=== PATIENT | male | born 1960 | race Caucasian/White ===

== ENCOUNTER 2023-10-22 22:43 | Inpatient (IN) | payer BC, OTHER ==
[2023-10-22 23:34] LABS: Basophils % (A) 0 %; Eosinophils # (A) 0.1 k/uL (0-0.7); Eosinophils % (A) 2 %; HCT 40.6 % (39.0-53.0); HGB 14.3 gm/dL (13.0-17.5); Lymphocytes # (A) 1.8 k/uL (1.0-4.8); Lymphocytes % (A) 20 %; MCH 32.7 pg (25.0-35.0); MCHC 35.1 g/dL (31.0-37.0); MCV 93.2 fL (80.0-100.0); Mean Platelet Volume 7.4; Monocytes # (A) 0.5 k/uL (0-1.0); Monocytes % (A) 6 %; Neutrophils # (A) 6.5 k/uL (1.3-7.7); Neutrophils % (A) 71 %; Platelet Count 191 k/uL (150-450); RBC 4.36 m/uL (4.30-5.90); RDW 12.1 % (11.5-15.5); WBC 9.2 k/uL (3.8-10.6)
[2023-10-22 23:53] LABS: INR 1.1 (<1.2); Partial Thromboplastin Time 36.5 sec (22.0-30.0); Prothrombin Time 11.8 sec (10.0-12.5)
[2023-10-23] LABS: ALT 26 U/L (4-49); AST 23 U/L (17-59); African American GFR (CKD) >90 (>60 ml/min/1.73 sqM); Albumin 3.5 g/dL (3.5-5.0); Alkaline Phosphatase 55 U/L (38-126); Anion Gap 6 mmol/L; Blood Urea Nitrogen 17 mg/dL (9-20); Calcium 8.4 mg/dL (8.4-10.2); Carbon Dioxide 23 mmol/L (22-30); Chloride 107 mmol/L (98-107); Glucose 112 mg/dL (74-99); Non-African American GFR(CKD) >90 (>60 ml/min/1.73 sqM); Sodium 136 mmol/L (137-145); Total Bilirubin 1.1 mg/dL (0.2-1.3); Total Protein 6.2 g/dL (6.3-8.2)
[2023-10-23 00:21] LABS: Potassium 3.7 mmol/L (3.5-5.1)
[2023-10-23] MEDS ORDERED: HEPARIN SODIUM 1,000 UN/ML (10ML VL) IV PRN (00:31)
[2023-10-23] MEDS ORDERED: HEPARIN SOD,PORK IN 0.45% NACL 25,000 UNIT in 0.45% NACL 1 250ML.BAG IV SCH ×2 (00:45)
[2023-10-23] MEDS ORDERED: NALOXONE 0.4 MG/ML 1 ML VIAL IV PRN (00:57)
--- NOTE | 2023-10-23 00:57 | ED ---
Arrhythmia/Palpitations HPI - General Chief Complaint: Arrhythmia/Palpitations Stated Complaint: Dysrhythmia Time Seen by Provider: 10/22/23 22:55 Source: patient, EMS Mode of arrival: EMS Limitations: no limitations - History of Present Illness Initial Comments: 63-year-old male who presents the emergency department as a transfer from [facility]. Patient had a cystoscopy with urolift. He was sent to the postop area where he went significantly bradycardic. Patient was given 1 mg of epinephrine and then subsequently went into V. tach. This was sustained for approximately 5 minutes before he converted. Patient never lost consciousness. He felt like he was going to pass out but denies having any chest pain or shortness of breath. He denies any previous cardiac history. EKG performed at that time demonstrated significant ischemic changes. These changes continued to persist 20 minutes after the first EKG was performed. Laboratory studies reveal an elevated troponin level. Because of this it was recommended that the patient be transferred to facility with cardiology. Patient arrives and feels asymptomatic at this time. He does have a Asif in place with gross hematuria. He is on a heparin drip due to his ischemic changes and elevated Trop. No other alleviating, precipitating or modifying factors - Related Data Home Medications Medication Instructions Recorded Confirmed Omeprazole 20 mg PO DAILY 10/22/23 10/22/23 Tamsulosin [Flomax] 0.4 mg PO DIRECTED 10/22/23 10/22/23 amLODIPine BESYLATE/BENAZEPRIL 1 cap PO DAILY 10/22/23 10/22/23 [amLODIPine BESYLATE/BENAZEPRIL 10-20 mg] Previous Rx's Medication Instructions Recorded Aspirin 81 mg PO DAILY 90 Days #90 tab 10/24/23 Atorvastatin [Lipitor] 40 mg PO HS 90 Days #90 tab 10/24/23 Metoprolol Tartrate [Lopressor] 25 mg PO BID 90 Days #180 tab 10/24/23 Allergies Allergy/AdvReac Type Severity Reaction Status Date / Time tobacco Allergy Unknown Uncoded 10/22/23 23:04 walnut tree pollen Allergy Unknown Uncoded 10/22/23 23:04 Review of Systems ROS Statement: Those systems with pertinent positive or pertinent negative responses have been documented in the HPI. ROS Other: All systems not noted in ROS Statement are negative. Past Medical History Past Medical History: Diabetes Mellitus, GERD/Reflux, Hyperlipidemia, Hypertension Additional Past Medical History / Comment(s): hiatal hernia, sleep apnea History of Any Multi-Drug Resistant Organisms: None Reported Past Surgical History: Orthopedic Surgery Additional Past Surgical History / Comment(s): vasectomy Past Psychological History: No Psychological Hx Reported Smoking Status: Never smoker Past Alcohol Use History: Occasional Past Drug Use History: None Reported General Exam Limitations: no limitations General appearance: alert, in no apparent distress Head exam: Present: atraumatic, normocephalic, normal inspection Eye exam: Present: normal appearance, PERRL, EOMI. Absent: scleral icterus, conjunctival injection, periorbital swelling ENT exam: Present: normal exam, mucous membranes moist Neck exam: Present: normal inspection. Absent: tenderness, meningismus, lymphadenopathy Respiratory exam: Present: normal lung sounds bilaterally. Absent: respiratory distress, wheezes, rales, rhonchi, stridor Cardiovascular Exam: Present: regular rate, normal rhythm, normal heart sounds. Absent: systolic murmur, diastolic murmur, rubs, gallop, clicks GI/Abdominal exam: Present: soft, normal bowel sounds. Absent: distended, tenderness, guarding, rebound, rigid Extremities exam: Present: normal inspection, full ROM, normal capillary refill. Absent: tenderness, pedal edema, joint swelling, calf tenderness Back exam: Present: normal inspection Neurological exam: Present: alert, oriented X3, CN II-XII intact Psychiatric exam: Present: normal affect, normal mood Skin exam: Present: warm, dry, intact, normal color. Absent: rash Course Vital Signs 10/22/23 10/22/23 10/23/23 22:51 23:00 00:00 Temperature 99.1 F Pulse Rate 72 78 71 Pulse Rate [ Seam Hammerer ] Pulse Rate [ Sitting Seam Hammerer] Respiratory 18 16 18 Rate Blood Pressure 137/87 137/87 127/90 Blood Pressure [Left Arm] O2 Sat by Pulse 98 98 95 Oximetry 10/23/23 10/23/23 10/23/23 01:00 02:00 03:00 Temperature Pulse Rate 87 97 75 Pulse Rate [ Seam Hammerer ] Pulse Rate [ Sitting Seam Hammerer] Respiratory 17 16 12 Rate Blood Pressure 137/75 125/65 121/73 Blood Pressure [Left Arm] O2 Sat by Pulse 95 93 L 95 Oximetry 10/23/23 10/23/23 10/23/23 04:00 05:00 06:00 Temperature Pulse Rate 70 82 68 Pulse Rate [ Seam Hammerer ] Pulse Rate [ Sitting Seam Hammerer] Respiratory 18 17 15 Rate Blood Pressure 126/76 126/76 127/72 Blood Pressure [Left Arm] O2 Sat by Pulse 94 L 94 L 94 L Oximetry 10/23/23 10/23/23 10/23/23 07:00 08:30 10:48 Temperature 98.2 F Pulse Rate 84 Pulse Rate [ 72 Seam Hammerer ] Pulse Rate [ 62 Sitting Seam Hammerer] Respiratory 19 16 16 Rate Blood Pressure 124/72 Blood Pressure 127/81 101/62 [Left Arm] O2 Sat by Pulse 94 L 95 98 Oximetry Medical Decision Making - Medical Decision Making Was pt. sent in by a medical professional or institution (, PA, DRIVE IN WAITER/WAITRESS, urgent care, hospital, or long term...) When possible be specific @ -[facility] Did you speak to anyone other than the patient for history (EMS, parent, family, police, friend...)? What history was obtained from this source @ -Transferring doctor, Dr. Rios Did you review nursing and triage notes (agree or disagree)? Why? @ -I reviewed and agree with nursing and triage notes Were old charts reviewed (outside hosp., previous admission, EMS record, old EKG, old radiological studies, urgent care reports/EKG's, long term records)? Report findings @ -I reviewed patient's chart from [facility] earlier today Differential Diagnosis (chest pain, altered mental status, abdominal pain women, abdominal pain men, vaginal bleeding, weakness, fever, dyspnea, syncope, headache, dizziness, GI bleed, back pain, seizure, CVA, palpatations, mental health, musculoskeletal)? @ -Differential Palpitations Ventricular arrhythmias, atrial arrhythmias, myocardial infarction, anemia, thyrotoxicosis, electrolyte imbalance, hypokalemia, pulmonary embolism, pulmonary disease, drugs, alcohol, anxiety, stress.... This is not meant to be an all-inclusive list. EKG interpreted by me (3pts min.). @ -Yes and demonstrates sinus rhythm with rate of 61. VA interval 132. QRS 106. QTc of 392. No acute ST segment elevations or depressions X-rays interpreted by me (1pt min.). @ -None done CT interpreted by me (1pt min.). @ -None done U/S interpreted by me (1pt. min.). @ -None done What testing was considered but not performed or refused? (CT, X-rays, U/S, labs)? Why? @ -None What meds were considered but not given or refused? Why? @ -None Did you discuss the management of the patient with other professionals (professionals i.e. Dr., PA, DRIVE IN WAITER/WAITRESS, lab, RT, psych nurse, social services designee, learning support assistant, teacher, mobile patrol officer, manager of case)? Give summary @ -Spoke with admitting physician Was smoking cessation discussed for >3mins.? @ -No Was critical care preformed (if so, how long)? @ -Yes, 35 minutes for heparinization of the patient Were there social determinants of health that impacted care today? How? (Homelessness, low income, unemployed, alcoholism, drug addiction, transportation, low edu. Level, literacy, decrease access to med. care, mcc, rehab)? @ -No Was there de-escalation of care discussed even if they declined (Discuss DNR or withdrawal of care, Hospice)? DNR status @ -No What co-morbidities impacted this encounter? (DM, HTN, Smoking, COPD, CAD, Cancer, CVA, ARF, Chemo, Hep., AIDS, mental health diagnosis, sleep apnea, morbid obesity)? @ -None Was patient admitted / discharged? Hospital course, mention meds given and route, prescriptions, significant lab abnormalities, going to OR and other pertinent info. @ -Admitted. Upon arrival patient was placed into bed 6. Thorough history and physical exam was performed. I did review the patient's packet. I did check another troponin level. Patient remains on the heparin drip. Spoke with admitting physician. Cardiology will be placed on consult Undiagnosed new problem with uncertain prognosis? @ -Yes Drug Therapy requiring intensive monitoring for toxicity (Heparin, Nitro, Insulin, Cardizem)? @ -Heparin Were any procedures done? @ -No Diagnosis/symptom? @ -Acute postop bradycardia, nonsustained V. tach, NSTEMI Acute, or Chronic, or Acute on Chronic? @ -Acute Uncomplicated (without systemic symptoms) or Complicated (systemic symptoms)? @ -Complicated Side effects of treatment? @ -No Exacerbation, Progression, or Severe Exacerbation? @ -No Poses a threat to life or bodily function? How? (Chest pain, USA, DE, pneumonia, PE, COPD, DKA, ARF, appy, cholecystitis, CVA, Diverticulitis, Homicidal, Suicidal, threat to staff... and all critical care pts) @ -Yes, patient was in V. tach - Lab Data Result diagrams: 10/24/23 07:50 10/24/23 07:50 Lab Results 10/22/23 10/22/23 10/22/23 Range/Units 23:10 23:29 23:29 WBC 9.2 (3.8-10.6) k/uL RBC 4.36 (4.30-5.90) m/uL Hgb 14.3 (13.0-17.5) gm/dL Hct 40.6 (39.0-53.0) % MCV 93.2 (80.0-100.0) fL MCH 32.7 (25.0-35.0) pg MCHC 35.1 (31.0-37.0) g/dL RDW 12.1 (11.5-15.5) % Plt Count 191 (150-450) k/uL MPV 7.4 Neutrophils % 71 % Lymphocytes % 20 % Monocytes % 6 % Eosinophils % 2 % Basophils % 0 % Neutrophils # 6.5 (1.3-7.7) k/uL Lymphocytes # 1.8 (1.0-4.8) k/uL Monocytes # 0.5 (0-1.0) k/uL Eosinophils # 0.1 (0-0.7) k/uL Basophils # 0.0 (0-0.2) k/uL PT 11.8 (10.0-12.5) sec INR 1.1 (<1.2) APTT 36.5 H (22.0-30.0) sec Sodium 136 L (137-145) mmol/L Potassium 3.7 (3.5-5.1) mmol/L Chloride 107 (98-107) mmol/L Carbon Dioxide 23 (22-30) mmol/L Anion Gap 6 mmol/L BUN 17 (9-20) mg/dL Creatinine 0.69 (0.66-1.25) mg/dL Est GFR (CKD-EPI)AfAm >90 (>60 ml/min/1.73 sqM) Est GFR (CKD-EPI)NonAf >90 (>60 ml/min/1.73 sqM) Glucose 112 H (74-99) mg/dL Calcium 8.4 (8.4-10.2) mg/dL Total Bilirubin 1.1 (0.2-1.3) mg/dL AST 23 (17-59) U/L ALT 26 (4-49) U/L Alkaline Phosphatase 55 (38-126) U/L Troponin I (0.000-0.034) ng/mL Total Protein 6.2 L (6.3-8.2) g/dL Albumin 3.5 (3.5-5.0) g/dL 10/22/23 Range/Units 23:29 WBC (3.8-10.6) k/uL RBC (4.30-5.90) m/uL Hgb (13.0-17.5) gm/dL Hct (39.0-53.0) % MCV (80.0-100.0) fL MCH (25.0-35.0) pg MCHC (31.0-37.0) g/dL RDW (11.5-15.5) % Plt Count (150-450) k/uL MPV Neutrophils % % Lymphocytes % % Monocytes % % Eosinophils % % Basophils % % Neutrophils # (1.3-7.7) k/uL Lymphocytes # (1.0-4.8) k/uL Monocytes # (0-1.0) k/uL Eosinophils # (0-0.7) k/uL Basophils # (0-0.2) k/uL PT (10.0-12.5) sec INR (<1.2) APTT (22.0-30.0) sec Sodium (137-145) mmol/L Potassium (3.5-5.1) mmol/L Chloride (98-107) mmol/L Carbon Dioxide (22-30) mmol/L Anion Gap mmol/L BUN (9-20) mg/dL Creatinine (0.66-1.25) mg/dL Est GFR (CKD-EPI)AfAm (>60 ml/min/1.73 sqM) Est GFR (CKD-EPI)NonAf (>60 ml/min/1.73 sqM) Glucose (74-99) mg/dL Calcium (8.4-10.2) mg/dL Total Bilirubin (0.2-1.3) mg/dL AST (17-59) U/L ALT (4-49) U/L Alkaline Phosphatase (38-126) U/L Troponin I 0.195 H* (0.000-0.034) ng/mL Total Protein (6.3-8.2) g/dL Albumin (3.5-5.0) g/dL Disposition Clinical Impression: V-tach, NSTEMI (non-ST elevated myocardial infarction) Disposition: ADMITTED IP TO THIS HOSP Condition: Stable Is patient prescribed a controlled substance at d/c from ED?: No Time of Disposition: 00:57 Decision to Admit Reason: Admit from EC Decision Date: 10/23/23 Decision Time: 00:57
[2023-10-23] MEDS ORDERED: DEXTROSE 50% SYRINGE 50 ML IVP PRN ×2 (04:11)
--- NOTE | 2023-10-23 04:19 | P.HPIM ---
History of Present Illness H&P Date: 10/23/23 Chief Complaint: V. tach 63-year-old male with diabetes mellitus, hypertension Patient had a procedure done today at a different facility for BPH and bladder issues, however post cystoscopy while in the recovery room he was noted to be bradycardic patient describes that he was feeling going into a tunnel and blacking out. He does not recall any associated shortness of breath or chest pain but remembers that a lot of people got into the room and then he was transferred to the ER. Transfer papers and signout indicated that the patient went into significant bradycardia down to the 30s for which she was given a dose of epinephrine after which immediately he went into V. tach CODE BLUE was activated however CPR was not administered patient never lost pulse then it seems that he converted spontaneously. Upon further checkup EKG showed possible ST depression in late ral leads with elevated troponins for which she was transferred to our facility for further cardiac workup Patient currently is asymptomatic he denies any chest pain trouble breathing nausea vomiting or palpitations he denies any cardiac history Patient denies tobacco smoking illicit drugs or heavy alcohol review of systems Pertinent positives as noted in HPI. All other systems were reviewed and are negative on exam Constitutional: No acute distress, conversant, pleasant Eyes: Anicteric sclerae, moist conjunctiva, Pupils equal round reactive to light ENMT: NC/AT Oropharynx clear, no erythema, or exudates Neck: Supple, no masses, or JVD No carotid bruits No thyromegaly Lungs: Clear to auscultation Clear to percussion Normal respiratory effort, no accessory muscle use Cardiovascular: Heart regular in rate and rhythm, No murmurs, gallops, or rubs No peripheral edema Abdominal: Soft Nontender, no guarding, rebound or rigidity Abdomen moving with respiration Normoactive bowel sounds No hepatomegaly, No splenomegaly No palpable mass No abdominal wall hernia noted Asif catheter in place with hematuria post cystoscopy procedure Extremities: No digital cyanosis No clubbing Pedal pulses intact and symmetrical Radial pulses intact and symmetrical No calf tenderness Psychiatric: Alert and oriented to person, place and time Appropriate affect fair judgement Neuro Muscles Strength 5/5 in all 4 extremities Sensation to light touch grossly present throughout Cranial nerves II-XII grossly intact Lymphatics: no palpable cervical or supraclavicular lymph nodes Past Medical History Past Medical History: Diabetes Mellitus, GERD/Reflux, Hyperlipidemia, Hypertension Additional Past Medical History / Comment(s): hiatal hernia, sleep apnea History of Any Multi-Drug Resistant Organisms: None Reported Past Surgical History: Orthopedic Surgery Additional Past Surgical History / Comment(s): vasectomy Past Psychological History: No Psychological Hx Reported Smoking Status: Never smoker Past Alcohol Use History: Occasional Past Drug Use History: None Reported Medications and Allergies Home Medications Medication Instructions Recorded Confirmed Type Atorvastatin [Lipitor] 10 mg PO HS 10/22/23 10/22/23 History Omeprazole 20 mg PO DAILY 10/22/23 10/22/23 History Tamsulosin [Flomax] 0.4 mg PO DIRECTED 10/22/23 10/22/23 History amLODIPine BESYLATE/BENAZEPRIL 1 cap PO DAILY 10/22/23 10/22/23 History [amLODIPine BESYLATE/BENAZEPRIL 10-20 mg] Allergies Allergy/AdvReac Type Severity Reaction Status Date / Time tobacco Allergy Unknown Uncoded 10/22/23 23:04 walnut tree pollen Allergy Unknown Uncoded 10/22/23 23:04 Physical Exam Vitals: Vital Signs Temp Pulse Resp BP Pulse Ox 10/23/23 01:00 87 17 137/75 95 10/23/23 00:00 71 18 127/90 95 10/22/23 23:00 78 16 137/87 98 10/22/23 22:51 99.1 F 72 18 137/87 98 Intake and Output 10/22/23 10/22/23 10/23/23 14:59 22:59 06:59 Other: Weight 101.151 kg Results CBC & Chem 7: 10/22/23 23:10 10/22/23 23:29 Labs: Abnormal Lab Results - Last 24 Hours (Table) 10/22/23 10/22/23 10/22/23 Range/Units 23:29 23:29 23:29 APTT 36.5 H (22.0-30.0) sec Sodium 136 L (137-145) mmol/L Glucose 112 H (74-99) mg/dL Troponin I 0.195 H* (0.000-0.034) ng/mL Total Protein 6.2 L (6.3-8.2) g/dL Assessment and Plan Assessment: 63-year-old male with diabetes mellitus hypertension BPH had a cystoscopy procedure done at a different facility after which was complicated by bradycardia then V. tach arrhythmia he never lost pulse I discussed case with ED doctor and accepted the admission for ventricular arrhythmia rule out underlying acute coronary syndrome post cystoscopy procedure with anticipated length of stay more than 2 midnights Ventricular arrhythmia with V. tach Elevated troponins rule out acute coronary syndrome Patient was initiated on heparin drip upon transfer from the other facility Monitor vital signs Cardiology consult Documented V. tach was noted immediately post epinephrine which was given for bradycardia while in recovery room Currently patient is in normal sinus rhythm Repeat EKG in our facility shows normal sinus rhythm unremarkable no acute ST changes Troponin elevated 0.19 trending down to 0.14 Hypertension Controlled Continue amlodipine and lisinopril Diabetes mellitus Dietary controlled at home Insulin sliding scale BPH status post cystoscopy Asif catheter in place Urology consult Significant hematuria Monitor hemoglobin currently 14.3 unremarkable Renal function unremarkable sodium 136 potassium 3.7 BUN 17 creatinine 0.69 Chest x-ray done at the other facility no acute cardiopulmonary process Full code DVT prophylaxis currently on heparin drip for possible ACS
[2023-10-23] MEDS ORDERED: ACETAMINOPHEN TAB 325 MG TAB PO STA (07:14)
[2023-10-23 07:40] LABS: HCT 40.5 % (39.0-53.0); HGB 13.8 gm/dL (13.0-17.5); MCH 32.4 pg (25.0-35.0); MCHC 34.1 g/dL (31.0-37.0); Mean Platelet Volume 7.1; Platelet Count 196 k/uL (150-450); RBC 4.26 m/uL (4.30-5.90); RDW 12.2 % (11.5-15.5)
[2023-10-23 08:01] LABS: ALT 25 U/L (4-49); AST 21 U/L (17-59); African American GFR (CKD) >90 (>60 ml/min/1.73 sqM); Albumin 3.6 g/dL (3.5-5.0); Alkaline Phosphatase 62 U/L (38-126); Anion Gap 9 mmol/L; Blood Urea Nitrogen 16 mg/dL (9-20); Calcium 8.5 mg/dL (8.4-10.2); Carbon Dioxide 24 mmol/L (22-30); Chloride 105 mmol/L (98-107); Glucose 148 mg/dL (74-99); Non-African American GFR(CKD) >90 (>60 ml/min/1.73 sqM); Sodium 138 mmol/L (137-145); Total Bilirubin 0.9 mg/dL (0.2-1.3); Total Protein 6.2 g/dL (6.3-8.2)
[2023-10-23] MEDS: INSULIN ASPART (NovoLOG) 100 UNIT/ML VIAL SQ SCH ×4 (08:15→20:42)
[2023-10-23] MEDS: ASPIRIN 81 MG PO SCH (08:32)
[2023-10-23] MEDS: lisinopriL 20 MG TAB PO SCH (08:32)
[2023-10-23] MEDS: PANTOPRAZOLE 40 MG TABLET PO SCH (08:32)
[2023-10-23] MEDS: amLODIPine 10 MG TAB PO SCH (08:32)
[2023-10-23] MEDS ORDERED: TAMSULOSIN 0.4 MG CAP.ER.24H PO SCH (09:00)
[2023-10-23] MEDS ORDERED: ALPRAZolam 0.5 MG TAB PO PRN (09:07)
[2023-10-23] MEDS ORDERED: ATORVASTATIN 80 MG TAB PO STA (09:07)
[2023-10-23] MEDS ORDERED: ALPRAZolam 0.25 MG TAB PO PRN (09:07)
[2023-10-23] MEDS ORDERED: ASPIRIN 325 MG TAB PO STA (09:07)
[2023-10-23] MEDS ORDERED: NITROGLYCERIN SL TABS 0.4 MG TAB SUBLINGUAL PRN (09:07)
[2023-10-23] MEDS: SODIUM CHLORIDE 0.9% 1,000 ML in EMPTY BAG 1 BAG IV SCH ×2 (09:17→14:50)
--- NOTE | 2023-10-23 09:43 | XR ---
EXAMINATION TYPE: XR chest 1V portable DATE OF EXAM: 10/23/2023 Comparison: None Clinical History: 63-year-old male with chest pain and low heart rate Findings: Heart normal size. Aorta and pulmonary vasculature within normal limits. Some strandy atelectasis in the lower lungs. More focal patchy opacity medial right base area Impression: Strandy bibasilar atelectasis. Either a more focal area of atelectasis versus developing infiltrate a t the medial right base. Correlate with symptoms.
--- NOTE | 2023-10-23 09:50 | P.CRDCN ---
History of Present Illness History of present illness: HISTORY OF PRESENT ILLNESS: This is a 63-year-old male with a past medical history significant for hypertension, hyperlipidemia, BPH, and diet-controlled diabetes. 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 He has not seen the director for beauty school in over a year. We have been asked to see the patient in consultation for ventricular tachycardia and elevated troponin. Patient examined at the bedside in the emergency room. Patient was at [facility] yesterday. He underwent a cystoscopy. Post procedure the patient was found to be bradycardic. The patient was apparently given epinephrine. After administration, the patient began to have runs of ventricular tachycardia. According to documentation, the patient did not lose consciousness and did not require CPR. Apparently, he converted back to SR on his own. The patient currently denies any chest pain or pressure. He denies any shortness of breath. The patient does report at home he gets dizzy and lightheaded if he gets out of bed or from a sitting position too quickly. DIAGNOSTICS: - EKG reveals sinus mechanism with ST depression in V3V6 - Chest xray streaky bibasilar atelectasis. Either a more focal area of atelectasis versus developing infiltrate at the medial right base. - Laboratory data: WBC 8.0. Hemoglobin 13.8. Platelet count 196. Sodium 138. Potassium 4.0. BUN 16. Creatinine 0.76. Troponin 0.195. 0.142. 0.095. - Current home cardiac medications include Lipitor 10 mg at night and amlodipine-benazepril 10 mg - 20 mg daily - No previous echocardiogram or cardiac catheterization available in EMR for review REVIEW OF SYSTEMS: At the time of my exam: CONSTITUTIONAL: Denies fever or chills. HEENT: Denies blurred vision, vision changes, or eye pain. Denies hemoptysis CARDIOVASCULAR: Denies chest pain. Denies orthopnea. Denies PND. Denies palpitations RESPIRATORY: Denies shortness of breath. GASTROINTESTINAL: Denies abdominal pain. Denies nausea or vomiting. HEMATOLOGIC: Denies bleeding disorders. GENITOURINARY: Denies any blood in urine. SKIN: Denies pruitis. Denies rash. PHYSICAL EXAM: VITAL SIGNS: Reviewed. GENERAL: Well-developed in no acute distress. HEENT: Head is normocephalic. Pupils are equal, round. Sclerae anicteric. Mucous membranes of the mouth are moist. Neck supple. No JVD or thyromegaly LUNGS: Respirations even and unlabored. Lungs essentially clear to auscultation bilaterally. HEART: Regular rate and rhythm. S1 and S2 heard. Soft systolic murmur noted ABDOMEN: Soft. Nondistended. Nontender. EXTREMITIES: Normal range of motion. No clubbing or cyanosis. Peripheral pulses intact. No lower extremity edema NEUROLOGIC: Awake and alert. Oriented x 3. ASSESSMENT: Bradycardia, status post cystoscopy Reported ventricular tachycardia, status post epinephrine administration for bradycardia, converting to sinus mechanism spontaneously without need for CPR or defibrillation, no rhythm strips available for review Non-STEMI History of hypertension History of hyperlipidemia History of diet-controlled diabetes BPH PLAN: Obtain 2D echo to assess cardiac structure and function Continue IV heparin Add aspirin 81 mg daily Increase atorvastatin to 40 mg at night Resume home cardiac medications Patient to undergo cardiac catheterization today with Dr. Champagne Further recommendations pending patient course Nurse practitioner note has been reviewed by physician. Signing provider agrees with the documented findings, assessment, and plan of care documented by TILE EDGER as a scribe. Past Medical History Past Medical History: Diabetes Mellitus, GERD/Reflux, Hyperlipidemia, Hypertension Additional Past Medical History / Comment(s): hiatal hernia, sleep apnea History of Any Multi-Drug Resistant Organisms: None Reported Past Surgical History: Orthopedic Surgery Additional Past Surgical History / Comment(s): vasectomy Past Psychological History: No Psychological Hx Reported Smoking Status: Never smoker Past Alcohol Use History: Occasional Past Drug Use History: None Reported Medications and Allergies Home Medications Medication Instructions Recorded Confirmed Type Atorvastatin [Lipitor] 10 mg PO HS 10/22/23 10/22/23 History Omeprazole 20 mg PO DAILY 10/22/23 10/22/23 History Tamsulosin [Flomax] 0.4 mg PO DIRECTED 10/22/23 10/22/23 History amLODIPine BESYLATE/BENAZEPRIL 1 cap PO DAILY 10/22/23 10/22/23 History [amLODIPine BESYLATE/BENAZEPRIL 10-20 mg] Allergies Allergy/AdvReac Type Severity Reaction Status Date / Time tobacco Allergy Unknown Uncoded 10/22/23 23:04 walnut tree pollen Allergy Unknown Uncoded 10/22/23 23:04 Physical Exam Vitals: Vital Signs Temp Pulse Resp BP Pulse Ox 10/23/23 07:00 84 19 124/72 94 L 10/23/23 06:00 68 15 127/72 94 L 10/23/23 05:00 82 17 126/76 94 L 10/23/23 04:00 70 18 126/76 94 L 10/23/23 03:00 75 12 121/73 95 10/23/23 02:00 97 16 125/65 93 L 10/23/23 01:00 87 17 137/75 95 10/23/23 00:00 71 18 127/90 95 10/22/23 23:00 78 16 137/87 98 10/22/23 22:51 99.1 F 72 18 137/87 98 Intake and Output 10/22/23 10/23/23 10/23/23 22:59 06:59 14:59 Output Total 450 Balance -450 Output: Urine 450 Other: Weight 101.151 kg Results 10/23/23 06:56 10/23/23 06:56 Cardiac Enzymes 10/22/23 10/22/23 10/23/23 Range/Units 23:29 23:29 03:00 AST 23 (17-59) U/L Troponin I 0.195 H* 0.142 H* (0.000-0.034) ng/mL Coagulation 10/22/23 10/23/23 Range/Units 23:29 06:56 PT 11.8 (10.0-12.5) sec APTT 36.5 H 34.1 H (22.0-30.0) sec CBC 10/22/23 10/23/23 Range/Units 23:10 06:56 WBC 9.2 8.0 (3.8-10.6) k/uL RBC 4.36 4.26 L (4.30-5.90) m/uL Hgb 14.3 13.8 (13.0-17.5) gm/dL Hct 40.6 40.5 (39.0-53.0) % Plt Count 191 196 (150-450) k/uL Comprehensive Metabolic Panel 10/22/23 Range/Units 23:29 Sodium 136 L (137-145) mmol/L Potassium 3.7 (3.5-5.1) mmol/L Chloride 107 (98-107) mmol/L Carbon Dioxide 23 (22-30) mmol/L BUN 17 (9-20) mg/dL Creatinine 0.69 (0.66-1.25) mg/dL Glucose 112 H (74-99) mg/dL Calcium 8.4 (8.4-10.2) mg/dL AST 23 (17-59) U/L ALT 26 (4-49) U/L Alkaline Phosphatase 55 (38-126) U/L Total Protein 6.2 L (6.3-8.2) g/dL Albumin 3.5 (3.5-5.0) g/dL Current Medications Generic Name Dose Route Start Last Admin Trade Name Freq PRN Reason Stop Dose Admin Amlodipine Besylate 10 mg 10/23/23 09:00 Amlodipine 10 Mg Tab PO DAILY [facility] Atorvastatin Calcium 10 mg 10/23/23 21:00 Atorvastatin 10 Mg Tab PO HS [facility] Dextrose/Water 25 ml 10/23/23 04:11 Dextrose 50% Syringe 50 Ml IVP PER PROTOCOL PRN Hypoglycemia Protocol Dextrose/Water 50 ml 10/23/23 04:11 Dextrose 50% Syringe 50 Ml IVP PER PROTOCOL PRN Hypoglycemia Protocol Heparin Sodium (Porcine) 0 unit 10/23/23 00:31 Heparin Sodium 1,000 Un/Ml (10ml Vl) IV PER PROTOCOL PRN Low PTT Protocol Heparin Sodium/Sodium Chloride 250 mls @ 10 mls/hr 10/23/23 00:45 10/23/23 00:50 25,000 unit/ Sodium Chloride IV 9.89 units/kg/hr .Q24H [facility] 10 mls/hr Administration Protocol 9.8862 UNITS/KG/HR Insulin Aspart 0 unit 10/23/23 07:30 Insulin Aspart (Novolog) 100 Unit/Ml Vial SQ ACHS [facility] Protocol Lisinopril 20 mg 10/23/23 09:00 Lisinopril 20 Mg Tab PO DAILY [facility] Naloxone HCl 0.2 mg 10/23/23 00:57 Naloxone 0.4 Mg/Ml 1 Ml Vial IV Q2M PRN Opioid Reversal Pantoprazole Sodium 40 mg 10/23/23 07:30 Pantoprazole 40 Mg Tablet PO AC-BRKFST [facility] Intake and Output 10/22/23 10/23/23 10/23/23 22:59 06:59 14:59 Output Total 450 Balance -450 Output: Urine 450 Other: Weight 101.151 kg 10/23/23 06:56 10/22/23 23:29
[2023-10-23] MEDS ORDERED: VERAPAMIL 2.5 MG/ML 2 ML AMP ONE (10:00)
[2023-10-23] MEDS ORDERED: LIDOCAINE 1% INJ 10MG/ML (20 ML MDV) ONE (10:00)
[2023-10-23] MEDS ORDERED: HEPARIN SODIUM 1,000 UN/ML (10ML VL) ONE (10:00)
[2023-10-23] MEDS ORDERED: fentaNYL (PF) 50 MCG/ML 2 ML AMP ONE (10:01)
[2023-10-23] MEDS ORDERED: fentaNYL (PF) 50 MCG/ML 2 ML AMP IVP ONE (10:03)
[2023-10-23] MEDS ORDERED: LIDOCAINE 1% INJ 10MG/ML (20 ML MDV) SQ ONE (10:21)
[2023-10-23] MEDS ORDERED: VERAPAMIL SYRINGE (5 MG/10 ML) INTRAARTER ONE (10:22)
[2023-10-23] MEDS ORDERED: HEPARIN SODIUM 1,000 UN/ML (10ML VL) IVP ONE (10:24)
[2023-10-23] MEDS ORDERED: IOPAMIDOL-370 100ML BTL IVP ONE (10:32)
[2023-10-23] MEDS ORDERED: RX INFO: IV CONTRAST WAS GIVEN 1 EACH MISC MISCELLANE PRN (10:48)
--- NOTE | 2023-10-23 10:54 | P.CARDCATH ---
Date of Procedure: 10/23/23 Description of Procedure: Cardiac Catheterization: The patient is a 63-year-old male with a history of hypertension, hyperlipidemia who underwent cystoscopy in a different facility, postprocedure had episodes of bradycardia and hypotension, received epinephrine and subsequently had an episode of nonsustained VT in addition to ST segment depression in the lateral leads. He was transferred for further evaluation and he had mild troponin elevation. Recommendations were made regarding cardiac catheterization, the risks and the complications were discussed with the patient who is in full understanding and agreement. Procedure Description: Patient was brought to powerhouse laborer in fasting semi-sedated state after receiving Fentanyl and Benadryl achieiving moderate conscious sedated state. Using Xylocaine Anesthesia and modified Seldinger technique, a 6-Azeri sheath was introduced in the right radial artery . Subsequently, selective coronary angiography was performed using a 5-Azeri 3.5 bend Rosaura catheter. Multiple views of the coronary artery including hemiaxial views were obtained. The 6 Azeri pigtail catheter was used to cross the aortic valve and LVEDP was calculated. Following that, catheter and sheath were removed. Hemostasis was obtained with deployment of vascular band . There was no immediate complication. Patient was returned to room in stable condition. Of note, the patient received a total of 5000 units of intravenous heparin as well as intra-arterial verapamil. Findings: Left main: This is a large size vessel, bifurcating into LAD and left circumflex, left main has no obstructive disease LAD: This is a large size vessel giving rise to 2 obtuse marginal branch the LAD tapers in the distal third. The LAD and its branches have no obstructive disease Left circumflex: This is a nondominant vessel large in caliber giving rise to 2 obtuse marginal branch. The second obtuse marginal branch proximally has a 20% plaque. The rest of the vessel has no high-grade stenosis RCA: This is a large sized vessel bifurcating distally to PDA and PLV, dominant the RCA and its branches have no obstructive disease. Left Ventriculogram: Performed in the HERNADEZ view and revealed normal left ventricular and systolic function there was no evidence of significant mitral regurgitation Hemodynamics: There was no gradient across the aortic valve, LVEDP was 15-20 mmHg Conclusion: 1. Mild intimal disease in the second OM 2. No obstructive disease in the RCA and LAD 3. Normal ventricle size and systolic function 4. Right dominance Recommendations: I would recommend to continue medical therapy, it is likely that his arrhythmia was related to the epinephrine. The findings and the recommendations were discussed with the patient and the family and they were in full understanding and agreement. Duration of sedation is 14 minutes.
[2023-10-23] MEDS ORDERED: SODIUM CHLORIDE 0.9% 1,000 ML IV SCH (11:00)
[2023-10-23] MEDS ORDERED: HYDROcodone/APAP 5-325MG 1 EACH TAB PO PRN (13:46)
--- NOTE | 2023-10-23 13:51 | P.PN ---
Subjective Progress Note Date: 10/23/23 Hospital course: Patient is a pleasant 63-year-old male with a past medical history of hypertension, hyperlipidemia, obstructive sleep apnea, GERD, and diet-controlled diabetes mellitus. He presented to the emergency department via transfer from [facility] secondary to concerns of V. tach. Per report patient underwent a cystoscopy with UroLift at their facility and while in postop patient was reportedly found to have episodes of bradycardia radiating down into the 30s and was given a dose of epinephrine and immediately went into sustained V. tach in which he never lost a pulse and converted without further intervention. An EKG was completed at previous facility which reportedly showed concerns of possible ST depression in lateral leads and patient was found to have elevated troponin. He was started on low intensity heparin infusion and transferred to our facility for admission and to undergo further cardiac workup. Upon arrival to our facility patient underwent full evaluation. Vital signs as follows blood pressure 137/87, heart rate 72, respiratory rate 18, temp 99.1 F, SpO2 of 98% on room air. Labs completed and reviewed. CBC and BMP unremarkable. Liver profile normal findings. Troponin elevated at 0.195. EKG was completed showing sinus rhythm at 61 bpm with T wave inversions in leads III otherwise showing no significant ST abnormalities showing no signs of acute ischemia at this time. Patient was admitted under our services with consultation to cardiology. Troponins trended overnight resulting at 0.195, 0.142, and 0.095. Patient taken for cardiac cath this morning. Cardiac catheterization showing mild intimal disease in the second OM and no obstructive disease in the RCA or LAD with normal ventricular size and systolic function. Cardiology recommending continuing medical therapy and that it was likely that the arrhythmia was secondary to epinephrine administration. . Physical exam: Patient seen and fully evaluated in Clerical Warehouse Worker holding area status post completion of cardiac cath. He appears to be doing well and denies having any pain or complaints. Cardiac cath site right wrist with TR band in place. Patient denies having any headache, lightheadedness, dizziness, chest pain, palpitations, shortness of breath, or any other complaints at this time. Vital signs reviewed and stable. General: Nontoxic, no distress and appears stated age. Derm: Skin warm and dry, normal coloration for ethnicity. Head: Atraumatic, normocephalic and symmetric. Eyes: EOMs intact, no lid lag, and anicteric sclera Mouth: no lip lesions, mucus membranes moist Cardiovascular: regular rate and rhythm with normal S1S2, no murmur, positive posterior tibial pulses bilaterally, and cap refill < 2 seconds. Lungs: Respirations even, regular, and unlabored on room air. Lungs CTA bilaterally, no rhonchi, no rales, no wheezing, and no accessory muscle usage. Abdominal: soft, nontender to palpation, no guarding, no appreciable organomegaly Ext: ROM intact. No gross muscle atrophy, no edema, no contractures Neuro: Speech clear, face symmetrical and CN II-XII grossly intact with no noted focal neuro deficits Psych: Alert and oriented to person, place, time, and situation. Appropriate and pleasant affect. Assessment and Plan of Care: Postoperative bradycardia, status post cystoscopy Reported run of sustained ventricular tachycardia status post administration of IV epinephrine for reported treatment of bradycardia Elevated troponins, likely secondary to demand ischemia resulting from reported V. tach History of hypertension History of hyperlipidemia -Patient reportedly had postoperative bradycardia with heart rate dropping into the 30s and previous facility administered IV epinephrine for the treatment of patient's bradycardia in which patient reportedly immediately went into ventricular tachycardia. Patient never reportedly lost a pulse or needed advanced cardiac life support. Patient converted back into normal sinus rhythm without intervention. -Troponins elevated at 0.195, 0.142, and 0.095 -Cardiology evaluated, took patient for cardiac cath. -Cardiac catheterization showing mild intimal disease in the second OM and no obstructive disease in the RCA or LAD with normal ventricular size and systolic function. Cardiology recommending continuing medical therapy and that it was likely that the arrhythmia was secondary to epinephrine administration. . -Continue telemetry monitoring -Cardiac diet -Continue cardiac medication regimen with aspirin 81 mg daily, amlodipine 10 mg daily, atorvastatin 40 mg nightly, lisinopril 20 mg daily, and metoprolol 25 mg twice daily. -Echocardiogram to be completed. Status post cystoscopy Asif catheter was reportedly inserted after patient went into V. tach, patient requesting removal. We will remove at this time as it was not placed for surgical procedure or postoperative management. Orders placed for bladder scan to monitor for postvoid residuals. Symptomatic care and pain management. Patient to follow-up outpatient as scheduled with his primary urologist. Data and imaging reviewed: Chest x-ray revealing strandy bibasilar atelectasis versus developing infiltrate. Troponins trended overnight resulting at 0.195, 0.142, and 0.095. Morning labs completed and reviewed. CBC and BMP unremarkable. Liver profile normal findings. CODE STATUS: Full code DVT prophylaxis: Heparin Anticipated discharge date: Likely tomorrow morning Anticipated discharge place: Home Patient was seen independently by Nurse Pracitioner. This document was prepared using [employer] dictation software. Please allow for errors in ornamental brick installer, while rare they do occur. Nikos Johnson PHARMACEUTICAL PROCESS ENGINEER rendered care for this patient independently, reviewed the findings and plan as documented in the note above. I did not physically speak with or examine the patient on this ashwin Objective - Vital Signs Vital signs: Vital Signs Temp 98.2 F 10/23/23 08:30 Pulse 72 10/23/23 08:30 Resp 16 10/23/23 08:30 BP 127/81 10/23/23 08:30 Pulse Ox 95 10/23/23 08:30 FiO2 Intake & Output 10/22/23 10/23/23 10/23/23 18:59 06:59 18:59 Output Total 450 Balance -450 Weight 101.151 kg Output: Urine 450 - Labs CBC & Chem 7: 10/23/23 06:56 10/23/23 06:56 Labs: Abnormal Lab Results - Last 24 Hours (Table) 10/22/23 10/22/23 10/22/23 Range/Units 23:29 23:29 23:29 RBC (4.30-5.90) m/uL APTT 36.5 H (22.0-30.0) sec Sodium 136 L (137-145) mmol/L Glucose 112 H (74-99) mg/dL Troponin I 0.195 H* (0.000-0.034) ng/mL Total Protein 6.2 L (6.3-8.2) g/dL 10/23/23 10/23/23 10/23/23 Range/Units 03:00 06:56 06:56 RBC (4.30-5.90) m/uL APTT 34.1 H (22.0-30.0) sec Sodium (137-145) mmol/L Glucose (74-99) mg/dL Troponin I 0.142 H* 0.095 H* (0.000-0.034) ng/mL Total Protein (6.3-8.2) g/dL 10/23/23 10/23/23 Range/Units 06:56 06:56 RBC 4.26 L (4.30-5.90) m/uL APTT (22.0-30.0) sec Sodium (137-145) mmol/L Glucose 148 H (74-99) mg/dL Troponin I (0.000-0.034) ng/mL Total Protein 6.2 L (6.3-8.2) g/dL
[2023-10-23] MEDS ORDERED: SODIUM CHLORIDE 0.9% 1,000 ML IV ONE (14:45)
[2023-10-23 17:00] LABS: Glucose,Whole Blood 127 mg/dL (70-110)
--- NOTE | 2023-10-23 18:55 | P.GSCN ---
History of Present Illness Consult date: 10/23/23 Reason for Consult: Gross hematuria History of present illness: This is a 63-year-old male that was transferred from [facility] for car diology evaluation. Urology is consulted for gross hematuria . Patient underwent Urolift by Dr. Graves at [place]. Patient had a Asif catheter placed postprocedure which was subsequently removed this morning. Following the procedure and with catheter insertion it was noticed that urine was gross hematuria. Patient underwent UroLift secondary to obstructive urinary symptoms. He indicated since Asif catheter removal he is able to void without any difficulties. Denies any gross hematuria or dysuria. Prior to his procedure no previous history of gross hematuria. Review of Systems - Constitutional Denies fever, Denies weight loss - EENT Ears, nose, mouth and throat: Denies dysphagia - Cardiovascular Denies chest pain, Denies shortness of breath - Respiratory Denies cough, Denies 7 - Gastrointestinal Reports as per HPI - Genitourinary Denies dysuria, Denies hematuria Past Medical History Past Medical History: Diabetes Mellitus, GERD/Reflux, Hyperlipidemia, Hypertension Additional Past Medical History / Comment(s): hiatal hernia, sleep apnea History of Any Multi-Drug Resistant Organisms: None Reported Past Surgical History: Orthopedic Surgery Additional Past Surgical History / Comment(s): vasectomy Smoking Status: Never smoker Medications and Allergies Home Medications Medication Instructions Recorded Confirmed Type Atorvastatin [Lipitor] 10 mg PO HS 10/22/23 10/22/23 History Omeprazole 20 mg PO DAILY 10/22/23 10/22/23 History Tamsulosin [Flomax] 0.4 mg PO DIRECTED 10/22/23 10/22/23 History amLODIPine BESYLATE/BENAZEPRIL 1 cap PO DAILY 10/22/23 10/22/23 History [amLODIPine BESYLATE/BENAZEPRIL 10-20 mg] Allergies Allergy/AdvReac Type Severity Reaction Status Date / Time tobacco Allergy Unknown Uncoded 10/22/23 23:04 walnut tree pollen Allergy Unknown Uncoded 10/22/23 23:04 Surgical - Exam Vital Signs Temp Pulse Resp BP Pulse Ox 99.1 F 72 18 137/87 98 10/22/23 22:51 10/22/23 22:51 10/22/23 22:51 10/22/23 22:51 10/22/23 22:51 - General no distress, no pain - Eyes normal ocular movement, no pale - ENT normal nares, normal mucosa - Respiratory normal expansion, normal respiratory effort - Abdomen Abdomen: soft, non tender - Psychiatric oriented to time, oriented to person, oriented to place Results - Labs 10/23/23 06:56 10/23/23 06:56 Abnormal Lab Results - Last 24 Hours (Table) 10/22/23 10/22/23 10/22/23 Range/Units 23:29 23:29 23:29 RBC (4.30-5.90) m/uL APTT 36.5 H (22.0-30.0) sec Sodium 136 L (137-145) mmol/L Glucose 112 H (74-99) mg/dL POC Glucose (mg/dL) (70-110) mg/dL Troponin I 0.195 H* (0.000-0.034) ng/mL Total Protein 6.2 L (6.3-8.2) g/dL 10/23/23 10/23/23 10/23/23 Range/Units 03:00 06:56 06:56 RBC (4.30-5.90) m/uL APTT 34.1 H (22.0-30.0) sec Sodium (137-145) mmol/L Glucose (74-99) mg/dL POC Glucose (mg/dL) (70-110) mg/dL Troponin I 0.142 H* 0.095 H* (0.000-0.034) ng/mL Total Protein (6.3-8.2) g/dL 10/23/23 10/23/23 10/23/23 Range/Units 06:56 06:56 16:58 RBC 4.26 L (4.30-5.90) m/uL APTT (22.0-30.0) sec Sodium (137-145) mmol/L Glucose 148 H (74-99) mg/dL POC Glucose (mg/dL) 127 H (70-110) mg/dL Troponin I (0.000-0.034) ng/mL Total Protein 6.2 L (6.3-8.2) g/dL Diabetes panel 10/22/23 10/23/23 Range/Units 23:29 06:56 Sodium 136 L 138 (137-145) mmol/L Potassium 3.7 4.0 (3.5-5.1) mmol/L Chloride 107 105 (98-107) mmol/L Carbon Dioxide 23 24 (22-30) mmol/L BUN 17 16 (9-20) mg/dL Creatinine 0.69 0.76 (0.66-1.25) mg/dL Glucose 112 H 148 H (74-99) mg/dL Calcium 8.4 8.5 (8.4-10.2) mg/dL AST 23 21 (17-59) U/L ALT 26 25 (4-49) U/L Alkaline Phosphatase 55 62 (38-126) U/L Total Protein 6.2 L 6.2 L (6.3-8.2) g/dL Albumin 3.5 3.6 (3.5-5.0) g/dL Calcium panel 10/22/23 10/23/23 Range/Units 23:29 06:56 Calcium 8.4 8.5 (8.4-10.2) mg/dL Albumin 3.5 3.6 (3.5-5.0) g/dL Pituitary panel 10/22/23 10/23/23 Range/Units 23:29 06:56 Sodium 136 L 138 (137-145) mmol/L Potassium 3.7 4.0 (3.5-5.1) mmol/L Chloride 107 105 (98-107) mmol/L Carbon Dioxide 23 24 (22-30) mmol/L BUN 17 16 (9-20) mg/dL Creatinine 0.69 0.76 (0.66-1.25) mg/dL Glucose 112 H 148 H (74-99) mg/dL Calcium 8.4 8.5 (8.4-10.2) mg/dL Adrenal panel 10/22/23 10/23/23 Range/Units 23:29 06:56 Sodium 136 L 138 (137-145) mmol/L Potassium 3.7 4.0 (3.5-5.1) mmol/L Chloride 107 105 (98-107) mmol/L Carbon Dioxide 23 24 (22-30) mmol/L BUN 17 16 (9-20) mg/dL Creatinine 0.69 0.76 (0.66-1.25) mg/dL Glucose 112 H 148 H (74-99) mg/dL Calcium 8.4 8.5 (8.4-10.2) mg/dL Total Bilirubin 1.1 0.9 (0.2-1.3) mg/dL AST 23 21 (17-59) U/L ALT 26 25 (4-49) U/L Alkaline Phosphatase 55 62 (38-126) U/L Total Protein 6.2 L 6.2 L (6.3-8.2) g/dL Albumin 3.5 3.6 (3.5-5.0) g/dL Assessment and Plan Assessment: 63-year-old male with gross hematuria post UroLift. His hematuria is secondary to his recent procedure and catheter placement. Discussed with him he may continue to have intermittent hematuria for the next few weeks given his recent urological surgery. No further intervention from urology standpoint, he can follow-up with his urologist at [place]
[2023-10-23 20:16] LABS: Glucose,Whole Blood 194 mg/dL (70-110)
[2023-10-23] MEDS: METOPROLOL TARTRATE 25 MG TAB PO SCH (20:41)
[2023-10-23] MEDS ORDERED: ATORVASTATIN 40 MG TAB PO SCH (21:00)
[2023-10-23] MEDS ORDERED: ATORVASTATIN 10 MG TAB PO SCH (21:00)
[2023-10-23 23:37] VITALS: RESP 16
[2023-10-24] MEDS: SODIUM CHLORIDE 0.9% 1,000 ML in EMPTY BAG 1 BAG IV SCH ×2 (05:21→08:56)
[2023-10-24] MEDS: INSULIN ASPART (NovoLOG) 100 UNIT/ML VIAL SQ SCH (06:35)
[2023-10-24 06:36] LABS: Glucose,Whole Blood 135 mg/dL (70-110)
[2023-10-24] MEDS: PANTOPRAZOLE 40 MG TABLET PO SCH (06:38)
[2023-10-24] MEDS ORDERED: HEPARIN SODIUM,PORCINE 10,000 UNIT in SODIUM CHLORIDE 0.9% 1,000 ML IRRIGATION PRN (07:00)
[2023-10-24] MEDS ORDERED: HEPARIN SODIUM,PORCINE (1 ML) 2,500 UNIT in SODIUM CHLORIDE 0.9% 250 ML IRRIGATION PRN (07:00)
[2023-10-24 08:49] LABS: Basophils % (A) 1 %; Eosinophils # (A) 0.2 k/uL (0-0.7); Eosinophils % (A) 3 %; HCT 41.8 % (39.0-53.0); HGB 14.2 gm/dL (13.0-17.5); Lymphocytes # (A) 1.4 k/uL (1.0-4.8); Lymphocytes % (A) 24 %; MCH 32.1 pg (25.0-35.0); MCV 94.2 fL (80.0-100.0); Mean Platelet Volume 7.4; Monocytes # (A) 0.4 k/uL (0-1.0); Monocytes % (A) 7 %; Neutrophils # (A) 3.8 k/uL (1.3-7.7); Neutrophils % (A) 64 %; Platelet Count 188 k/uL (150-450); RBC 4.44 m/uL (4.30-5.90); RDW 12.1 % (11.5-15.5)
[2023-10-24 09:03] VITALS: BP 124/77; PULSE 71; TEMP 98.1
[2023-10-24 09:06] LABS: African American GFR (CKD) >90 (>60 ml/min/1.73 sqM); Anion Gap 4 mmol/L; Blood Urea Nitrogen 10 mg/dL (9-20); Calcium 8.7 mg/dL (8.4-10.2); Carbon Dioxide 29 mmol/L (22-30); Chloride 105 mmol/L (98-107); Glucose 125 mg/dL (74-99); Non-African American GFR(CKD) >90 (>60 ml/min/1.73 sqM); Potassium 3.9 mmol/L (3.5-5.1); Sodium 138 mmol/L (137-145)
[2023-10-24 09:07] LABS: Prothrombin Time 10.9 sec (10.0-12.5)
[2023-10-24] MEDS: ASPIRIN 81 MG PO SCH (09:19)
[2023-10-24] MEDS: lisinopriL 20 MG TAB PO SCH (09:19)
[2023-10-24] MEDS: amLODIPine 10 MG TAB PO SCH (09:19)
[2023-10-24] MEDS: METOPROLOL TARTRATE 25 MG TAB PO SCH (09:24)
--- NOTE | 2023-10-24 11:54 | P.PN ---
Subjective HISTORY OF PRESENT ILLNESS: This is a 63-year-old male with a past medical history significant for hypertension, hyperlipidemia, BPH, and diet-controlled diabetes. Patient states that he followed with a sample examiner out of town but he is unsure of his name. He has not seen the sample examiner in over a year. We have been asked to see the patient in consultation for ventricular tachycardia and elevated troponin. Patient examined at the bedside in the emergency room. Patient was at [facility] yesterday. He underwent a cystoscopy. Post procedure the patient was found to be bradycardic. The patient was apparently given epinephrine. After administration, the patient began to have runs of ventricular tachycardia. According to documentation, the patient did not lose consciousness and did not require CPR. Apparently, he converted back to SR on his own. The patient currently denies any chest pain or pressure. He denies any shortness of breath. The patient does report at home he gets dizzy and lightheaded if he gets out of bed or from a sitting position too quickly. DIAGNOSTICS: - EKG reveals sinus mechanism with ST depression in V3V6 - Chest xray streaky bibasilar atelectasis. Either a more focal area of atelectasis versus developing infiltrate at the medial right base. - Laboratory data: WBC 8.0. Hemoglobin 13.8. Platelet count 196. Sodium 138. Potassium 4.0. BUN 16. Creatinine 0.76. Troponin 0.195. 0.142. 0.095. - Current home cardiac medications include Lipitor 10 mg at night and amlod ipine-benazepril 10 mg - 20 mg daily - No previous echocardiogram or cardiac catheterization available in EMR for review October 24, 2023 Patient is status post cardiac catheterization with Dr. Champagne yesterday revealing mild intimal disease in the second OM, no obstructive disease in the RCA and LAD, normal ventricular size and systolic function and right dominant system. Patient denies any chest pain or pressure. Denies any shortness of breath. Vital signs are stable. PHYSICAL EXAM: VITAL SIGNS: Reviewed. GENERAL: Well-developed in no acute distress. HEENT: Head is normocephalic. Pupils are equal, round. Sclerae anicteric. Mucous membranes of the mouth are moist. Neck supple. No JVD or thyromegaly LUNGS: Respirations even and unlabored. Lungs essentially clear to auscultation bilaterally. HEART: Regular rate and rhythm. S1 and S2 heard. Soft systolic murmur noted ABDOMEN: Soft. Nondistended. Nontender. EXTREMITIES: Normal range of motion. No clubbing or cyanosis. Peripheral pulses intact. No lower extremity edema NEUROLOGIC: Awake and alert. Oriented x 3. ASSESSMENT: Bradycardia, status post cystoscopy Reported ventricular tachycardia, status post epinephrine administration for bradycardia, converting to sinus mechanism spontaneously without need for CPR or defibrillation, no rhythm strips available for review Non-STEMI History of hypertension History of hyperlipidemia History of diet-controlled diabetes BPH PLAN: Continue current cardiac medications Patient is stable for discharge home today from a cardiac standpoint He has to follow-up on an outpatient basis with Dr. Champagne Nurse practitioner note has been reviewed by physician. Signing provider agrees with the documented findings, assessment, and plan of care documented by SCHOOL [employer]ORATORY TECHNICIAN as a scribe. Objective - Vital Signs Vital signs: Vital Signs Temp 98.1 F 10/24/23 08:49 Pulse 71 10/24/23 08:49 Resp 16 10/24/23 08:49 BP 124/77 10/24/23 08:49 Pulse Ox 95 10/24/23 08:49 FiO2 Intake & Output 10/23/23 10/24/23 10/24/23 18:59 06:59 18:59 Intake Total 2000 20 618 Output Total 2450 450 Balance -450 20 168 Weight 101.151 kg 102.2 kg Intake: IV 400 20 20 Invasive Line 1 10 10 Invasive Line 2 10 10 Intake, IV Titration 1000 Amount Sodium Chloride 0.9% 1, 1000 000 ml @ 75 mls/hr IV . [id number] [facility] Rx#:[id number] Oral 600 598 Output: Urine 2450 450 Uretheral (Asif) 1000 Other: Voiding Method Toilet Toilet # Voids 2 1 # Bowel Movements 1 - Labs CBC & Chem 7: 10/24/23 07:50 10/24/23 07:50 Labs: Abnormal Lab Results - Last 24 Hours (Table) 10/23/23 10/23/23 10/24/23 Range/Units 16:58 20:15 06:35 Glucose (74-99) mg/dL POC Glucose (mg/dL) 127 H 194 H 135 H (70-110) mg/dL 10/24/23 Range/Units 07:50 Glucose 125 H (74-99) mg/dL POC Glucose (mg/dL) (70-110) mg/dL
--- NOTE | 2023-10-24 12:05 | CA ---
Transthoracic Echo Report Name: Jorgito Dickens Age: 63 Gender: M : 1960 Exam Date: 10/24/2023 07:31 Exam Location: [facility] Ht (in): 69 Wt (lb): 223 Ordering Physician: Gin Lang MD Attending/Referring Phys: Edwige Landrum Stencil Cutter Machine Julianna Izquierdo RDCS Procedure CPT: Indications: VTach Cardiac Hx: Technical Quality: Fair Contrast 1: Total Dose (mL): Contrast 2: Total Dose (mL): MEASUREMENTS (Male / Female) Normal Values 2D ECHO LV Diastolic Diameter PLAX 5.1 cm 4.2 - 5.9 / 3.9 - 5.3 cm LV Systolic Diameter PLAX 3.3 cm IVS Diastolic Thickness 1.0 cm 0.6 - 1.0 / 0.6 - 0.9 cm LVPW Diastolic Thickness 1.1 cm 0.6 - 1.0 / 0.6 - 0.9 cm LV Relative Wall Thickness 0.4 RV Internal Dim ED PLAX 3.4 cm LA Systolic Diameter LX 4.0 cm 3.0 - 4.0 / 2.7 - 3.8 cm LV Diastolic Volume MOD 4C 118.3 cm??? LV Systolic Volume MOD 4C 53.2 cm??? LV Ejection Fraction MOD 4C 55.0 % LV Cardiac Index MOD 4C 1588.9 cm???/min???m??? LV Diastolic Length 4C 8.9 cm LV Systolic Length 4C 7.1 cm LV Diastolic Volume MOD 2C 86.2 cm??? LV Systolic Volume MOD 2C 33.2 cm??? LV Ejection Fraction MOD 2C 61.5 % LV Cardiac Index MOD 2C 1293.8 cm???/min???m??? LV Diastolic Length 2C 8.9 cm LV Systolic Length 2C 6.7 cm LA Volume 67.5 cm??? 18 - 58 / 22 - 52 cm??? LA Volume Index 30.0 cm???/m??? 16 - 28 cm???/m??? M-MODE Aortic Root Diameter MM 3.4 cm MV E Point Septal Separation 0.6 cm AV Cusp Separation MM 2.4 cm DOPPLER AV Peak Velocity 164.6 cm/s AV Peak Gradient 10.8 mmHg MV Area PHT 2.5 cm??? Mitral E Point Velocity 86.1 cm/s Mitral A Point Velocity 70.3 cm/s Mitral E to A Ratio 1.2 MV Deceleration Time 304.8 ms MV E' Velocity 9.4 cm/s Mitral E to MV E' Ratio 9.1 TR Peak Velocity 213.2 cm/s TR Peak Gradient 18.2 mmHg Right Ventricular Systolic Press 22.2 mmHg FINDINGS Left Ventricle Left ventricular ejection fraction is estimated at 60-65 %. Left ventricular cavity size normal. Left ventricular wall thickness normal. No obvious regional wall motion abnormalities. Right Ventricle Right ventricular dilatation. Right ventricular systolic pressure within normal limits. Right Atrium Normal right atrial size. Left Atrium Mildly increased left atrial volume. Mitral Valve Structurally normal mitral valve. No mitral stenosis, regurgitation or prolapse. Aortic Valve Trileaflet aortic valve. No aortic valve stenosis or regurgitation. Tricuspid Valve Structurally normal tricuspid valve. Mild tricuspid regurgitation. Pulmonic Valve Structurally normal pulmonic valve. No pulmonic regurgitation. Pericardium No pericardial effusion. Aorta Normal size aortic root and proximal ascending aorta. CONCLUSIONS Normal LV function Previewed by: Dr. Aries Robertson MD (Electronically Signed) Final Date: 24 October 2023 12:04
--- NOTE | 2023-10-24 12:57 | P.DS ---
Providers Date of admission: 10/23/23 00:57 Expected date of discharge: 10/24/23 Attending physician: Gin Lang MD Consults: 10/23/23 01:17 Consult Physician Urgent Consulting Provider: [facility] Consult Reason/Comments: vtach, nstemi Do you want consulting provider notified?: Yes 10/23/23 04:21 Consult Physician Routine Consulting Provider: Howard Ceballos Consult Reason/Comments: hematuria post cycstoscopy Do you want consulting provider notified?: Yes, Notify in am Primary care physician: So Moreau [facility] Course: Discharge Diagnosis: Postoperative bradycardia, status post cystoscopy Reported run of sustained ventricular tachycardia status post administration of IV epinephrine for reported treatment of bradycardia Elevated troponins, likely secondary to demand ischemia resulting from reported V. tach History of hypertension History of hyperlipidemia Status post cystoscopy. Patient to follow-up outpatient as scheduled with his primary urologist. Hospital Course: Patient is a pleasant 63-year-old male with a past medical history of hypertension, hyperlipidemia, obstructive sleep apnea, GERD, and diet-controlled diabetes mellitus. He presented to the emergency department via transfer from [facility] secondary to concerns of V. tach. Per report patient underwent a cystoscopy with [facility] at their facility and while in postop patient was reportedly found to have episodes of bradycardia radiating down into the 30s and was given a dose of epinephrine and immediately went into sustained V. tach in which he never lost a pulse and converted without further interventi on. An EKG was completed at previous facility which reportedly showed concerns of possible ST depression in lateral leads and patient was found to have elevated troponin. He was started on low intensity heparin infusion and transferred to our facility for admission and to undergo further cardiac workup. Upon arrival to our facility patient underwent full evaluation. Vital signs as follows blood pressure 137/87, heart rate 72, respiratory rate 18, temp 99.1 F, SpO2 of 98% on room air. Labs completed and reviewed. CBC and BMP unremarkable. Liver profile normal findings. Troponin elevated at 0.195. EKG was completed showing sinus rhythm at 61 bpm with T wave inversions in leads III otherwise showing no significant ST abnormalities showing no signs of acute ischemia at this time. Patient was admitted under our services with consultation to cardiology. Troponins trended overnight resulting at 0.195, 0.142, and 0.095. Patient taken for cardiac cath this morning. Cardiac cathete rization showing mild intimal disease in the second OM and no obstructive disease in the RCA or LAD with normal ventricular size and systolic function. Cardiology recommending continuing medical therapy and that it was likely that the arrhythmia was secondary to epinephrine administration. .Pt's condition is stable. He had no further arrythmias noted since admission. Medically pt is stable at this time, cleared by cardiology and is stable for Physical exam: Vital signs reviewed and stable. General: Nontoxic, no distress and appears stated age. Derm: Skin warm and dry, normal coloration for ethnicity. Head: Atraumatic, normocephalic and symmetric. Eyes: EOMs intact, no lid lag, and anicteric sclera Mouth: no lip lesions, mucus membranes moist Cardiovascular: regular rate and rhythm with normal S1S2, no murmur, positive posterior tibial pulses bilaterally, and cap refill < 2 seconds. Lungs: Respirations even, regular, and unlabored on room air. Lungs CTA bilaterally, no rhonchi, no rales, no wheezing, and no accessory muscle usage. Abdominal: soft, nontender to palpation, no guarding, no appreciable organomegaly Ext: ROM intact. No gross muscle atrophy, no edema, no contractures Neuro: Speech clear, face symmetrical and CN II-XII grossly intact with no noted focal neuro deficits Psych: Alert and oriented to person, place, time, and situation. Appropriate and pleasant affect. A total of 35 minutes of time were spent preparing this complex discharge summary. Pt was discharged on 10/24/2023 at 10:59 AM. Patient was seen independently by Nurse Practitioner. This document was prepared using [employer] dictation software. Please allow for errors in activity specialist while rare they do occur. Nikos Johnson NP rendered care for this patient independently, reviewed the findings and plan as documented in the note above. I did not physically speak with or examine the patient on this date. Patient Condition at Discharge: Stable Plan - Discharge Summary Discharge Rx Participant: No New Discharge Prescriptions: New Aspirin 81 mg PO DAILY 90 Days #90 tab Metoprolol Tartrate [Lopressor] 25 mg PO BID 90 Days #180 tab Atorvastatin [Lipitor] 40 mg PO HS 90 Days #90 tab Continue amLODIPine BESYLATE/BENAZEPRIL [amLODIPine BESYLATE/BENAZEPRIL 10-20 mg] 1 cap PO DAILY Tamsulosin [Flomax] 0.4 mg PO DIRECTED Omeprazole 20 mg PO DAILY Discontinued Atorvastatin [Lipitor] 10 mg PO HS Discharge Medication List Omeprazole 20 mg PO DAILY 10/22/23 [History] Tamsulosin [Flomax] 0.4 mg PO DIRECTED 10/22/23 [History] amLODIPine BESYLATE/BENAZEPRIL [amLODIPine BESYLATE/BENAZEPRIL 10-20 mg] 1 cap PO DAILY 10/22/23 [History] Aspirin 81 mg PO DAILY 90 Days #90 tab 10/24/23 [Rx] Atorvastatin [Lipitor] 40 mg PO HS 90 Days #90 tab 10/24/23 [Rx] Metoprolol Tartrate [Lopressor] 25 mg PO BID 90 Days #180 tab 10/24/23 [Rx] Follow up Appointment(s)/Referral(s): Russel Champagne MD [STAFF PHYSICIAN] - 12/04/23 9:45 am (THURSDAY.) So Moreau DO [Primary Care Provider] - 1-2 days (Please call to make a post hospital follow up appointment) Patient Instructions/Handouts: After Radial Heart Catheterization (GEN) Activity/Diet/Wound Care/Special Instructions: CARDIAC CATH Support your puncture site by applying firm, steady pressure whenever you cough, laugh, sneeze or bear down to have a bowel movement (2-day restriction). Watch for any excessive bruising, active bleeding, a firm knot forming under your skin, extreme tenderness and signs of infection (redness, swelling, fever). Shower daily, do not soak puncture in a tub bath, jacuzzi, pool, pearson etc. for 1 week. This is to prevent risk of infection. Drink plenty of fluids the day of and day after your procedure to flush contrast dye out of your kidneys. Take all medications as directed. Never stop any new medication without your physicians OK. No driving for 2 days after procedure. 10- pound weight lifting restriction for 1 week. Low sodium/low fat diet. Activity limited until follow up appointment with your practice management consultant. In case of any problems, please call [facility] @ [phone]. Just some important facts for you to know after your stent placement CHARLEY Inhibitor -Your medication: Lisinopril used to reduce cardiovascular events and decrease blood pressure these medications are also known to prevent left ventricular remodeling after you have suffered a myocardial infarction. Beta blockers -Your Medication: Metoprolol Is a medication that protects your heart from stress and can prevent future heart attacks. It can slow your heart rate. It can take weeks for your body to get used to a beta eladia. The dose may need to be changed a few times as your body adjusts Do not stop taking these medicines without talking to your doctor. -Take all other medicines as directed by your doctor. Do not take any extra aspirin or ibuprofen. They can increase your risk of bleeding. Many [id number] drugs contain aspirin. If you are unsure about what the drug contains, check with your pharmacist before taking it. -For mild discomfort, you may take plain Tylenol (acetaminophen). Follow dose directions, but do not take more than 4,000 mg of acetaminophen in 24 hours. Healthy LifeStyle It is important to keep a heart healthy lifestyle. This can improve your long- term health and decrease your risk for heart attacks. -Managing your blood cholesterol, blood pressure, weight, and stress. -The importance of regular exercise. -Heart Healthy Diet: Include more plants in your diet. Eat lots of fresh vegetables and fresh fruits. Eat good fats: plant based oils, avocado, nuts, beans, legumes. Eat more seafood. Limit Meat. Switch to whole grains. -Avoid fried foods and animal fats and processed meats Follow up with your PCP and [facility] Thank you for allowing us to participate in your care, it was truly a pleasure having you for our patient!!! Discharge Disposition: HOME SELF-CARE
== END 2023-10-24 11:46 | disposition home or self-care (01) | DRG 287 ==
LOC: EC 22:43 → 3SCARD 10-23 00:57
PROVIDERS: ADMIT Internal Medicine; ATTEND Internal Medicine
PROC: 3E043XZ Introduction of Vasopressor into Central Vein, Percutaneous Approach (ICD-10-PCS; 2023-10-23)
PROC: B2151ZZ Fluoroscopy of Left Heart using Low Osmolar Contrast (ICD-10-PCS; principal; 2023-10-23 16:30)
PROC: 4A023N7 Measurement of Cardiac Sampling and Pressure, Left Heart, Percutaneous Approach (ICD-10-PCS; principal; 2023-10-23 16:30)
PROC: B2111ZZ Fluoroscopy of Multiple Coronary Arteries using Low Osmolar Contrast (ICD-10-PCS; principal; 2023-10-23 16:30)
DX: I97.191 Other postprocedural cardiac functional disturbances following other surgery (principal); I24.89 Other forms of acute ischemic heart disease; I47.20 Ventricular tachycardia, unspecified; J98.11 Atelectasis; K21.9 Gastro-esophageal reflux disease without esophagitis; G47.33 Obstructive sleep apnea (adult) (pediatric); R31.0 Gross hematuria; K44.9 Diaphragmatic hernia without obstruction or gangrene; Y83.8 Other surgical procedures as the cause of abnormal reaction of the patient, or of later complication, without mention of misadventure at the time of the procedure; Y73.0 Diagnostic and monitoring gastroenterology and urology devices associated with adverse incidents; R00.1 Bradycardia, unspecified; E78.5 Hyperlipidemia, unspecified; N40.0 Benign prostatic hyperplasia without lower urinary tract symptoms; I10 Essential (primary) hypertension; E11.9 Type 2 diabetes mellitus without complications; Z28.310 Unvaccinated for COVID-19; Z79.899 Other long term (current) drug therapy
CPT/HCPCS: 36415; 71045; 80048; 80053; 83036; 84484; 85025; 85027; 85610; 85730; 93005; 93306; 93458; 96365; 96366; 99291